=== PATIENT | female | born 1990 | race Caucasian/White ===

== ENCOUNTER 2016-05-18 10:09 | Emergency (ER) | payer OTHER ==
[~2016-05-18] VITALS: Ht 167.6 cm; Wt 54.2 kg
[~2016-05-18 10:09] MED LIST: NAPROSYN500 MG PO; SPRINTEC1 EACH PO
[2016-05-18] MEDS ORDERED: ERYTHROMYC1 APPLICAT BOTH EYES (11:51)
[2016-05-18] MEDS ORDERED: OPCON-A EYE DRO15 ML BOTH EYES (11:51)
[2016-05-18 12:01] VITALS: BP 115/81
== END 2016-05-18 12:06 | disposition home or self-care (01) ==
LOC: EME 10:09
DX: H10.13 Acute atopic conjunctivitis, bilateral (principal)
CPT/HCPCS: 99281; 99283

== ENCOUNTER 2017-06-29 21:18 | Emergency (ER) | payer OTHER ==
[~2017-06-29] VITALS: Ht 170.2 cm; Wt 56.0 kg
[~2017-06-29 21:18] MED LIST changes: +ERYTHROMYC1 APPLICAT BOTH EYES; +OPCON-A EYE DRO15 ML BOTH EYES
[2017-06-29 23:26] LABS: CHLORIDE 108 mEq/L (99-109); POTASSIUM 3.8 mEq/L (3.7-5.4); SODIUM 139 mEq/L (136-147)
[2017-06-29 23:27] LABS: GLUCOSE 98 mg/dL (70-99)
[2017-06-29 23:31] LABS: CREATININE 0.7 mg/dL (0.6-1.3); GFR ESTIMATE (CALCULATED) > 59 mL/min/
[2017-06-29 23:32] LABS: UREA NITROGEN (BUN) 10 mg/dL (9-23)
[2017-06-29 23:35] LABS: APPEARANCE SL.HAZY ((CLEAR)); BILIRUBIN NEGATIVE; BLOOD NEGATIVE; COLOR YELLOW ((YELLOW)); GLUCOSE (STRIP) NEGATIVE; KETONES NEGATIVE; LEUKOCYTES NEGATIVE; NITRITE POSITIVE; PROTEIN (STRIP) NEGATIVE; SPECIFIC GRAVITY 1.013 (1.000-1.030); UROBILINOGEN 0.2 MG/DL (0.2-1.0)
[2017-06-29 23:37] LABS: BACTERIA RARE /HPF; EPITHELIAL CELLS NONE SEEN /HPF; MUCUS TRACE /LPF; RED BLOOD CELLS 0-5 /HPF (0-5); WHITE BLOOD CELLS 0-5 /HPF (0-5)
[2017-06-29] MEDS ORDERED: ZOFRAN ODT8 MG PO (23:53)
[2017-06-29] MEDS ORDERED: KEFLEX500 MG PO (23:53)
[2017-06-29] MEDS ORDERED: NAPROSYN500 MG PO (23:53)
[2017-06-29] MEDS ORDERED: IMITREX50 MG PO (23:53)
[2017-06-30 00:22] VITALS: BP 112/72
== END 2017-06-30 00:25 | disposition home or self-care (01) ==
LOC: EME 21:18 → EXP 21:18
PROVIDERS: Physician Assistant
DX: N30.00 Acute cystitis without hematuria (principal); R51 Headache; R11.0 Nausea
CPT/HCPCS: 80048; 81003; 87077; 87086; 87186; 99281; 99285; J0696; J1200; J1885; J2765; J7030